=== PATIENT | male | born 1960 | race Caucasian/White ===

== ENCOUNTER → 2016-08-04 | Outpatient (CLI) | payer OTHER ==
[~2016-08-04] MED LIST: IOPAMIDOL (ISOVUE-300) 100 ML BTL ONE
== END ==
LOC: FIMAGING 10:32
PROVIDERS: ATTEND Internal Medicine Hematology & Oncology
DX: C18.9 Malignant neoplasm of colon, unspecified (principal); K50.90 Crohn's disease, unspecified, without complications; K80.20 Calculus of gallbladder without cholecystitis without obstruction
CPT/HCPCS: Q9967

== ENCOUNTER → 2017-08-03 | Outpatient (CLI) | payer OTHER | LOC: FIMAGING 12:32 | PROVIDERS: ATTEND Internal Medicine Hematology & Oncology | DX: C17.9 Malignant neoplasm of small intestine, unspecified (principal); K52.9 Noninfective gastroenteritis and colitis, unspecified; K59.00 Constipation, unspecified; K76.89 Other specified diseases of liver; K80.20 Calculus of gallbladder without cholecystitis without obstruction; R59.9 Enlarged lymph nodes, unspecified; K40.90 Unilateral inguinal hernia, without obstruction or gangrene, not specified as recurrent | CPT/HCPCS: Q9967 ==

== ENCOUNTER 2018-02-18 05:44 | Day surgery (SDC) | payer OTHER ==
[2018-02-18] MEDS ORDERED: ceFAZolin 2 GM/DEXTROSE 100 ML IV ONE (05:53)
[2018-02-18] MEDS ORDERED: LIDOCAINE 1% 2 ML INJ ID PRN (05:55)
[2018-02-18] MEDS ORDERED: LR 1,000 ML IV ONE (05:55)
--- NOTE | 2018-02-18 06:59 | PDHPUP ---
History & Physical Update H&P update statement: This history and physical update is based on an assessment of the patient which was completed after admission or registration (within 24 hours), but prior to the surgery/procedure. H&P update: H&P reviewed & patient examined, no change in patient's condition since H&P completed
[2018-02-18] MEDS ORDERED: MIDAZOLAM 2 MG/2 ML VIAL IVP ONE (07:06)
[2018-02-18] MEDS ORDERED: fentaNYL 100 MCG/2 ML INJ ONE ×2 (07:06→08:22)
--- NOTE | 2018-02-18 07:06 | PDANEPAE ---
ANE Past Medical History - Cardiovascular History Hx Hypertension: No Hx Arrhythmias: No Hx Chest Pain: No Hx Coronary Artery / Peripheral Vascular Disease: No Hx CHF / Valvular Disease: No Hx Palpitations: No - Pulmonary History Hx COPD: No Hx Asthma/Reactive Airway Disease: No Hx Recent Upper Respiratory Infection: No Hx Oxygen in Use at Home: No Hx Sleep Apnea: No Sleep Apnea Screening Result - Last Documented: Negative - Neurologic History Hx Cerebrovascular Accident: No Hx Seizures: No Hx Dementia: No - Endocrine History Hx Diabetes: No - Renal History Hx Renal Disorders: No - Liver History Hx Hepatic Disorders: No - Neurological & Psychiatric Hx Hx Neurological and Psychiatric Disorders: No - Cancer History Hx Cancer: Yes Cancer History Comment: COLON - Congenital Disorder History Hx Congenital Disorders: No - GI History Hx Gastrointestinal Disorders: Yes Gastrointestinal History Comment: CROHNS DX - Chronic Pain History Chronic Pain: Yes (RT ING HERNIA) - Surgical History Prior Surgeries: SM BOWEL RESECTION FOR CA 2016. LT ING HERNIA. TONSILLECTOMY ANE Review of Systems Review of Systems: - Exercise capacity METS (RN): 3 METS ANE Patient History - Allergies Allergies/Adverse Reactions: No Known Allergies Allergy (Unverified 11/29/08 15:59) - Home Medications Home Medications: Tumeric PO DAILY 02/10/18 [Last Taken 02/14/18] - NPO status NPO Since - Liquids (Date): 02/18/18 NPO Since - Liquids (Time): 03:30 NPO Since - Solids (Date): 02/17/18 NPO Since - Solids (Time): 20:00 - Smoking Hx Smoking Status: Former smoker ANE Labs/Vital Signs - Vital Signs Vital Signs: reviewed preoperatively; see RN documention for details Blood Pressure: 109/61 Heart Rate: 60 Respiratory Rate: 18 O2 Sat (%): 96 Height: 162.56 cm Weight: 50.349 kg ANE Physical Exam - Airway Neck exam: FROM Mallampati Score: Class 2 Mouth exam: normal dental/mouth exam - Pulmonary Pulmonary: clear to auscultation - Cardiovascular Cardiovascular: regular rate and rhythym - ASA Status ASA Status: II ANE Anesthesia Plan Anesthesia Plan: general endotracheal anesthesia
[2018-02-18] MEDS ORDERED: PROPOFOL 200 MG/20 ML VIAL ONE (07:07)
[2018-02-18] MEDS ORDERED: ROCURONIUM 50 MG/5 ML VIAL ONE (07:07)
[2018-02-18] MEDS ORDERED: DEXAMETHASONE 4 MG/ML VIAL ONE (07:09)
[2018-02-18] MEDS ORDERED: BUPIVACAINE 0.5% 30 ML SDV ONE (07:09)
--- NOTE | 2018-02-18 07:49 | POSTANESTH ---
Post Anesthetic Evaluation Cardiovascular Status: Normal, Stable Respiratory Status: Normal, Stable Level of Consciousness/Mental Status: Can Participate in Eval Pain Control: Adequate, Prn Tx Ordered Nausea/Vomiting Control: Adequate, Prn Tx Ordered Complications Possibly Related to Anesthesia: None Noted
[2018-02-18] MEDS ORDERED: KETOROLAC 30 MG/1 ML SDV ONE (07:56)
[2018-02-18] MEDS ORDERED: ONDANSETRON 4 MG/2 ML VIAL ONE (07:56)
[2018-02-18] MEDS ORDERED: DEXAMETHASONE 4 MG/ML VIAL IVP PRN (08:31)
[2018-02-18] MEDS ORDERED: MEPERIDINE 25 MG/0.5 ML AMP IVP PRN (08:31)
[2018-02-18] MEDS ORDERED: fentaNYL 100 MCG/2 ML INJ IVP PRN (08:31)
[2018-02-18] MEDS ORDERED: oxyCODONE IR 5 MG TAB PO PRN (08:31)
[2018-02-18] MEDS ORDERED: ONDANSETRON 4 MG/2 ML VIAL IVP PRN (08:31)
[2018-02-18] MEDS ORDERED: ACETAMINOPHEN 500 MG TAB PO PRN (08:31)
[2018-02-18] MEDS ORDERED: PROMETHAZINE HCL 25 MG/ML INJ IVP PRN (08:31)
[2018-02-18] MEDS ORDERED: ALBUTEROL 3 ML DEYVIAL IH PRN (08:31)
[2018-02-18] MEDS ORDERED: NALOXONE HCL 0.4 MG/ML INJ IVP PRN (08:31)
[2018-02-18] MEDS ORDERED: DIAZEPAM 5 MG/ML 1 ML SYR IVP PRN (08:31)
[2018-02-18] MEDS ORDERED: HYDROmorphONE/DILAUDID 2 MG/ML INJ IVP PRN (08:31)
[2018-02-18] MEDS ORDERED: LR 500 ML IV PRN (08:31)
[2018-02-18] MEDS ORDERED: METOCLOPRAMIDE 10 MG/2 ML VIAL IVP PRN (08:31)
--- NOTE | 2018-02-18 08:34 | POSTOPPROG ---
Post Op Note Date of Operation: 02/18/18 Surgeon: Yasmin Grider Medical Territory Manager: mikey Anesthesiologist: mirella Anesthesia: GET(General Endotracheal) Pre-op Diagnosis: RIH Post-op Diagnosis: Indirect RIH Indication: 57 yo with RIH Procedure: Davinci RIH Findings: indirect hernia Inf/Abcess present in the surg proc area at time of surgery?: No EBL: Minimal
[2018-02-18] MEDS ORDERED: GLYCOPYRROLATE 0.2 MG/1 ML VIAL ONE (08:35)
[2018-02-18] MEDS ORDERED: NEOSTIGMINE METHYLSULFATE 5 MG/5 ML SYR ONE (08:35)
[2018-02-18] MEDS ORDERED: oxyCODONE IR 5 MG TAB ONE (09:01)
[2018-02-18] MEDS ORDERED: ACETAMINOPHEN 500 MG TAB ONE (09:37)
[2018-02-18 10:15] VITALS: BP 100/64
--- NOTE | 2018-02-18 19:46 | GOP ---
DATE OF OPERATION: 02/18/2018 SURGEON: Yasmin Grider MD QUEEN PRODUCER: Myrtle Finley, LILIAN. ANESTHESIA: General. ANESTHESIOLOGIST: Jessica Syed MD. PREOPERATIVE DIAGNOSIS: Right inguinal hernia. POSTOPERATIVE DIAGNOSIS: Indirect right inguinal hernia. PROCEDURE PERFORMED: da Dominic minimally invasive right inguinal hernia repair with mesh. FINDINGS: Large hernia sac and indirect hernia. SPECIMENS: None. ESTIMATED BLOOD LOSS: 5 cc. INDICATIONS: The patient is a 57-year-old who had a previous large midline incision. He had a previ ous hernia on the left, which was repaired and he now has a large right inguinal hernia. As his prep eritoneal space had been violated, da Dominic was indicated. DESCRIPTION OF PROCEDURE: Patient was brought into the operating room, placed supine on the table an d general anesthesia was administered. His abdomen was prepped and draped in the usual sterile fashi on. I made an incision on the lateral aspect of his right abdomen. I elevated it and I inserted the Veress needle, passed the hang drop test. His abdomen insufflated easily to a pressure of 15 mmHg. I placed an 8 mm trocar with the robotic camera in place. There were no injuries from Veress or tro car placement. I explored his abdomen. He had thin, filmy adhesions through his midline. I was abl e to place a trocar in the upper midline, followed by one on the left side. I could get the instrume nts to cross the adhesions. There was no hernia noted on the left side. On the right side, I was ab le to select an area of the peritoneum and incised this with the scissors. I created a flap. I iden tified the pubis. I identified the epigastric vessels. I was able to reduce an extremely large irene ia sac. The cord and cord structures were protected. I placed a piece of laparoscopic self-fixating ProGrip mesh to cover the direct, indirect, and femoral spaces. This was adhered nicely to the subc utaneous tissues. I then reapproximated the peritoneum with 2-0 V-Loc. I explored his abdomen and a gain no injuries noted. Ports were removed under direct vision. The abdomen allowed to desufflate. Skin closed with 4-0 Mon ocryl. Dermabond applied. He was awakened in the operating room, extubated, transferred to PACU in stable condition. /[id number]/MODL
== END 2018-02-18 11:06 | disposition home or self-care (01) ==
LOC: FSGY 05:44
PROVIDERS: ATTEND Surgery
PROC: 0YU54JZ Supplement Right Inguinal Region with Synthetic Substitute, Percutaneous Endoscopic Approach (ICD-10-PCS; principal; 2018-02-18 07:15)
PROC: 0YQ54ZZ Repair Right Inguinal Region, Percutaneous Endoscopic Approach (ICD-10-PCS; principal; 2018-02-18 07:15)
DX: K40.90 Unilateral inguinal hernia, without obstruction or gangrene, not specified as recurrent (principal)
CPT/HCPCS: C1781; J0690; J1100; J1885; J2250; J2405; J2704; J2710; J3010

== ENCOUNTER → 2018-04-07 | Outpatient (CLI) | payer OTHER | LOC: FIMAGING 16:27 | PROVIDERS: ATTEND Surgery | DX: N43.3 Hydrocele, unspecified (principal); N50.3 Cyst of epididymis; M79.81 Nontraumatic hematoma of soft tissue ==